=== PATIENT | female | born 2000 | race Caucasian/White ===

== ENCOUNTER 2023-12-28 14:20 | Inpatient (IN) | payer SELFPAY ==
[~2023-12-28] VITALS: Ht 162.6 cm; Wt 72.6 kg
[2023-12-28] MEDS: MIDAZOLAM HCL 2 MG/2 ML VIAL IM ONE ×2 (14:34→15:19)
[2023-12-28 15:00] LABS: CHLORIDE 107 mEq/L (98-107); POTASSIUM 3.5 mEq/L (3.5-5.1); SODIUM 140 mEq/L (136-145)
[2023-12-28 15:01] LABS: CALCIUM 10.3 mg/dL (8.7-10.4); CARBON DIOXIDE 22 mEq/L (21-32)
[2023-12-28 15:02] LABS: BASOPHILS % 0.3 % (0.0-2.0); EOSINOPHILS % 0.2 % (0.0-5.0); HEMATOCRIT. 44.2 % (36.0-48.0); HEMOGLOBIN. 14.4 g/dL (12.0-16.0); LYMPHOCYTES % 16.1 % (20.0-50.0); MEAN CORPUSCULAR HEMOGLOBIN 28.7 pg (28.0-32.0); MEAN CORPUSCULAR HGB CONC 32.6 g/dL (31.0-37.0); MEAN CORPUSCULAR VOLUME 87.9 fL (81.0-99.0); MEAN PLATELET VOLUME 10.4 fl (7.4-10.4); MONOCYTES % 4.3 % (2.0-8.0); NEUTROPHILS % 79.1 % (40.0-76.0); PLATELET 300 x1000/uL (130-400); RED BLOOD CELL COUNT 5.03 mill/uL (4.2-5.4); RED CELL DISTRIBUTION WIDTH 14.3 % (11.6-14.6)
[2023-12-28 15:05] LABS: UREA NITROGEN BLOOD 11 mg/dL (9-23)
[2023-12-28 15:06] LABS: CREATININE 0.7 mg/dL (0.6-1.0); GLUCOSE 109 mg/dL (70-105)
[2023-12-28 15:07] LABS: ALANINE AMINOTRANSFERASE 74 IU/L (10-49); ETHANOL BLOOD 80 mg/dL (<10)
[2023-12-28 15:08] LABS: ACETAMINOPHEN < 2 ug/mL (10-30); ALBUMIN 4.9 g/dL (3.2-4.8); ASPARTATE AMINOTRANSFERASE 74 IU/L (<34); BILIRUBIN TOTAL 0.3 mg/dL (0.1-1.0); PROTEIN TOTAL 8.2 g/dL (6.0-8.3)
[2023-12-28 15:13] LABS: BILIRUBIN DIRECT < 0.1 mg/dL (<=3.0)
[2023-12-28 15:22] LABS: HCG SCREEN NEGATIVE
[2023-12-28] MEDS: MIDAZOLAM HCL 2 MG/2 ML VIAL IV ONE (16:21)
[2023-12-28] MEDS: MIDAZOLAM HCL 2 MG/2 ML VIAL IM NR (16:48)
[2023-12-28] MEDS ORDERED: LACTATED RINGERS 1,000 ML IV SCH (17:30)
[2023-12-28 17:40] LABS: CLARITY URINE CLEAR (CLEAR); COLOR URINE YELLOW (YELLOW); GLUCOSE URINE NEGATIVE (NEGATIVE); KETONES URINE TRACE (NEGATIVE); LEUKOCYTE ESTERASE URINE TRACE (NEGATIVE); NITRITE URINE NEGATIVE (NEGATIVE); OCCULT BLOOD URINE NEGATIVE (NEGATIVE); PH URINE 5.5 (4.5-8.0); PROTEIN URINE NEGATIVE (NEGATIVE); SPECIFIC GRAVITY URINE 1.012 (1.005-1.030); UROBILINOGEN URINE 0.2 E.U./dL (0.2-1.0)
[2023-12-28] MEDS: KCL 20MEQ/100ML PREMIX 100 ML IV SCH (17:45)
[2023-12-28 17:48] LABS: *AMPHETAMINES SCREEN URINE NEGATIVE (NEGATIVE); *BARBITURATES SCREEN URINE NEGATIVE (NEGATIVE); *BENZODIAZEPINES SCREEN URINE PRESUMPTIVE POSITIVE (NEGATIVE)
[2023-12-28 17:49] LABS: *COCAINE SCREEN URINE NEGATIVE (NEGATIVE); CANNABINOID URINE SCREEN NEGATIVE (NEGATIVE); ECSTASY MDMA SCREEN URINE NEGATIVE (NEGATIVE); METHADONE URINE SCREEN NEGATIVE (NEGATIVE); OPIATES URINE SCREEN NEGATIVE (NEGATIVE); PHENCYCLIDINE URINE SCREEN NEGATIVE (NEGATIVE)
[2023-12-28 17:52] LABS: BACTERIA URINE 1+; RBC URINE 0-2 /hpf (0-2); SQUAMOUS EPITHELIAL CELL URINE 1+ /lpf (RARE/1+); WBC URINE 0-2 /hpf (0-2)
[2023-12-28] MEDS ORDERED: CLONIDINE 0.1MG TABLET PO PRN (18:00)
[2023-12-28] MEDS ORDERED: DOCUSATE SODIUM 100MG CAPSULE PO PRN (18:00)
[2023-12-28] MEDS ORDERED: LORAZEPAM 2MG/ML INJ IV PRN (18:00)
[2023-12-28] MEDS ORDERED: MAGNESIUM/ALUMINUM HYDROXIDE/SIMETHICONE 30ML UDC PO PRN (18:00)
[2023-12-28] MEDS ORDERED: ACETAMINOPHEN 325MG TABLET PO PRN ×2 (18:00)
[2023-12-28] MEDS ORDERED: ONDANSETRON HCL 4MG/2ML INJ IV PRN (18:00)
[2023-12-28] MEDS ORDERED: IPRATROPIUM/ALBUTEROL 0.5-3(2.5)MG/3ML NEB HHN PRN (18:00)
[2023-12-28] MEDS ORDERED: GUAIFENESIN 200MG/10ML SUGAR FREE UDC PO PRN (18:00)
[2023-12-28] MEDS: DEXT 5%/LACTATED RINGERS 1,000 ML IV SCH (18:43)
[2023-12-28 18:47] LABS: LACTIC ACID 3.4 mmol/L (0.4-2.0)
[2023-12-28 18:48] LABS: ALANINE AMINOTRANSFERASE 65 IU/L (10-49); ALBUMIN 4.3 g/dL (3.2-4.8); ASPARTATE AMINOTRANSFERASE 71 IU/L (<34); BETA HYDROXYBUTYRATE 0.2 mMol/L (0.0-0.3); BILIRUBIN TOTAL 0.3 mg/dL (0.1-1.0); PROTEIN TOTAL 7.3 g/dL (6.0-8.3)
[2023-12-28 18:53] LABS: BILIRUBIN DIRECT < 0.1 mg/dL (<=3.0)
[2023-12-28] MEDS: MVI, ADULT NO.1 10 ML, FOLIC ACID 1 MG, THIAMINE HCL 100 MG in SODIUM CHLORIDE 0.9% 1,0... IV SCH (20:29)
[2023-12-28] MEDS: MAGNESIUM 2 G PREMIX 50 ML IV NR (22:22)
[2023-12-28] MEDS: PANTOPRAZOLE SODIUM 40 MG/VIAL IV SCH (23:00)
[2023-12-29 01:37] LABS: CREATINE KINASE MB FRACTION 8.7 ng/mL (0.5-3.6)
[2023-12-29 01:38] LABS: ALANINE AMINOTRANSFERASE 67 IU/L (10-49); ALBUMIN 4.2 g/dL (3.2-4.8); ASPARTATE AMINOTRANSFERASE 78 IU/L (<34); BILIRUBIN DIRECT 0.1 mg/dL (<=3.0); BILIRUBIN TOTAL 0.5 mg/dL (0.1-1.0)
[2023-12-29 01:39] LABS: PROTEIN TOTAL 7.2 g/dL (6.0-8.3)
[2023-12-29 01:49] LABS: CREATINE KINASE 3393 IU/L (34-145)
[2023-12-29 01:53] LABS: TROPONIN I HIGH SENSITIVITY < 4 ng/L (3.0-34)
[2023-12-29 06:17] LABS: CHLORIDE 111 mEq/L (98-107); EOSINOPHILS % 0.5 % (0.0-5.0); HEMATOCRIT. 38.8 % (36.0-48.0); HEMOGLOBIN. 12.9 g/dL (12.0-16.0); LYMPHOCYTES % 15.3 % (20.0-50.0); MEAN CORPUSCULAR HGB CONC 33.2 g/dL (31.0-37.0); MEAN CORPUSCULAR VOLUME 87.4 fL (81.0-99.0); MEAN PLATELET VOLUME 10.2 fl (7.4-10.4); MONOCYTES % 7.7 % (2.0-8.0); NEUTROPHILS % 76.5 % (40.0-76.0); PLATELET 271 x1000/uL (130-400); POTASSIUM 3.6 mEq/L (3.5-5.1); RED BLOOD CELL COUNT 4.44 mill/uL (4.2-5.4); SODIUM 143 mEq/L (136-145); WHITE BLOOD COUNT 9.9 x1000/uL (4.5-11.0)
[2023-12-29 06:18] LABS: CALCIUM 8.7 mg/dL (8.7-10.4); CARBON DIOXIDE 27 mEq/L (21-32)
[2023-12-29 06:23] LABS: CREATININE 0.6 mg/dL (0.6-1.0); GLUCOSE 110 mg/dL (70-105); UREA NITROGEN BLOOD 7 mg/dL (9-23)
[2023-12-29 06:25] LABS: ALANINE AMINOTRANSFERASE 57 IU/L (10-49); ALBUMIN 3.9 g/dL (3.2-4.8); ASPARTATE AMINOTRANSFERASE 60 IU/L (<34); BILIRUBIN DIRECT 0.1 mg/dL (<=3.0); BILIRUBIN TOTAL 0.4 mg/dL (0.1-1.0); PROTEIN TOTAL 5.9 g/dL (6.0-8.3)
[2023-12-29 06:27] LABS: T4 FREE 1.14 ng/dL (0.89-1.76); THYROID STIMULATING HORMONE 4.66 uIU/mL (0.55-4.78)
[2023-12-29 06:30] LABS: TROPONIN I HIGH SENSITIVITY < 4 ng/L (3.0-34)
[2023-12-29 06:36] LABS: CREATINE KINASE 2157 IU/L (34-145)
[2023-12-29] MEDS: KCL 10MEQ/50ML PREMIX 50 ML IV ONE (06:36)
[2023-12-29] MEDS: KCL 20MEQ/100ML PREMIX 100 ML IV NR (07:17)
[2023-12-29 09:26] LABS: BG BASE EXCESS 0.9 mmol/L (-2.0-3.0); BG CARBOXYHEMOGLOBIN 0.7 % (0.5-1.5); BG DEOXYHEMOGLOBIN 2.8 % (0.0-5.0); BG FRACTION INSPIRED OXYGEN 21; BG HCO3 ACT 25.2 mmol/L (21.0-28.0); BG METHEMOGLOBIN 0.3 % (0.5-1.5); BG OXYGEN SATURATION 97.2 % (94.0-98.0); BG OXYHEMOGLOBIN 96.2 % (94.0-98.0); BG PH 7.428 (7.350-7.450); BG PO2 88.5 mmHg (83.0-108.0); BG SAMPLE SITE RIGHT BRACHIAL; BG TOTAL HEMOGLOBIN 13.7 g/dL (12.0-16.0); BG VENT MODE ROOM AIR
[2023-12-29] MEDS: FOLIC ACID 1MG TABLET PO SCH (10:23)
[2023-12-29] MEDS: THIAMINE HCL 100MG TABLET PO SCH (10:24)
[2023-12-29] MEDS: MULTIVITAMINS,THER W-MINERALS TABLET PO SCH (10:24)
[2023-12-29] MEDS: LACTATED RINGERS 1,000 ML IV SCH (12:53)
[2023-12-29] MEDS: MAGNESIUM 2 G PREMIX 50 ML IV SCH (14:03)
[2023-12-29] MEDS: POTASSIUM CHLORIDE 20MEQ TABLET SR PO PRN (17:36)
[2023-12-29] MEDS: IBUPROFEN 600MG TABLET PO SCH (20:13)
[2023-12-29 21:35] LABS: POTASSIUM 3.9 mEq/L (3.5-5.1)
[2023-12-29] MEDS: PANTOPRAZOLE SODIUM 40 MG/VIAL IV NR (21:35)
[2023-12-30 10:30] VITALS: BP 122/70; PULSE 135; RESP 18; TEMP 36.8072
[2023-12-30 11:00] VITALS: BP 122/70; PULSE 135; RESP 18; O2SAT 97
[2023-12-30] MEDS ORDERED: OLAN20TA79 PO (13:23)
[2023-12-30] MEDS ORDERED: SERT20OR6 PO (13:23)
[2023-12-30] MEDS ORDERED: LORAZEPAM 0.5MG TABLET PO PRN (13:30)
[2023-12-30 16:00] VITALS: BP 107/53; PULSE 88; RESP 19; TEMP 37.28076; O2SAT 99
[2023-12-30 20:00] VITALS: BP 105/70; PULSE 94; RESP 19; TEMP 37.33632; O2SAT 98
[2023-12-30 22:09] LABS: HEMATOCRIT 38.6 % (36.0-48.0); HEMOGLOBIN 12.9 g/dL (12.0-16.0); MEAN CORPUSCULAR HEMOGLOBIN 29.4 pg (28.0-32.0); MEAN CORPUSCULAR HGB CONC 33.5 g/dL (31.0-37.0); MEAN CORPUSCULAR VOLUME 87.8 fL (81.0-99.0); PLATELET 269 x1000/uL (130-400); RED BLOOD CELL COUNT 4.39 mill/uL (4.2-5.4); RED CELL DISTRIBUTION WIDTH 14.1 % (11.6-14.6); WHITE BLOOD COUNT 9.1 x1000/uL (4.5-11.0)
[2023-12-30 22:15] LABS: CARBON DIOXIDE 28 mEq/L (21-32); CHLORIDE 109 mEq/L (98-107); POTASSIUM 3.7 mEq/L (3.5-5.1); SODIUM 142 mEq/L (136-145)
[2023-12-30 22:16] LABS: CALCIUM 9.2 mg/dL (8.7-10.4)
[2023-12-30 22:20] LABS: CREATININE 0.8 mg/dL (0.6-1.0)
[2023-12-30 22:21] LABS: GLUCOSE 82 mg/dL (70-105); UREA NITROGEN BLOOD 9 mg/dL (9-23)
[2023-12-30 22:23] LABS: ALANINE AMINOTRANSFERASE 41 IU/L (10-49); ALBUMIN 3.8 g/dL (3.2-4.8); ASPARTATE AMINOTRANSFERASE 33 IU/L (<34); BILIRUBIN DIRECT 0.1 mg/dL (<=3.0); BILIRUBIN TOTAL 0.4 mg/dL (0.1-1.0); CREATINE KINASE 556 IU/L (34-145); PHOSPHORUS 3.7 mg/dL (2.5-4.9); PROTEIN TOTAL 6.2 g/dL (6.0-8.3)
[2023-12-31] VITALS: BP 116/82; PULSE 85; RESP 18; TEMP 36.9474; O2SAT 98
[2023-12-31 04:00] VITALS: BP 119/79; PULSE 76; RESP 18; TEMP 36.83628; O2SAT 99
[2023-12-31 07:31] VITALS: BP 106/54; PULSE 83; RESP 18; TEMP 37.05852; O2SAT 97
[2023-12-31 07:41] LABS: HEMATOCRIT 40.5 % (36.0-48.0); HEMOGLOBIN 13.5 g/dL (12.0-16.0); MEAN CORPUSCULAR HEMOGLOBIN 29.6 pg (28.0-32.0); MEAN CORPUSCULAR HGB CONC 33.3 g/dL (31.0-37.0); PLATELET 282 x1000/uL (130-400); RED BLOOD CELL COUNT 4.55 mill/uL (4.2-5.4); RED CELL DISTRIBUTION WIDTH 14.2 % (11.6-14.6); WHITE BLOOD COUNT 9.5 x1000/uL (4.5-11.0)
[2023-12-31 07:52] LABS: CHLORIDE 109 mEq/L (98-107); SODIUM 139 mEq/L (136-145)
[2023-12-31 07:53] LABS: CALCIUM 9.5 mg/dL (8.7-10.4); CARBON DIOXIDE 26 mEq/L (21-32)
[2023-12-31 07:58] LABS: CREATININE 0.7 mg/dL (0.6-1.0); GLUCOSE 97 mg/dL (70-105); UREA NITROGEN BLOOD 10 mg/dL (9-23)
[2023-12-31 08:00] LABS: PHOSPHORUS 3.3 mg/dL (2.5-4.9)
[2023-12-31] MEDS: FAMOTIDINE 20MG/2ML VIAL IV SCH (08:42)
[2023-12-31 13:14] VITALS: BP 112/56; PULSE 92; RESP 18; TEMP 36.50292; O2SAT 97
[2023-12-31 16:21] VITALS: BP 112/75; PULSE 113; RESP 20; TEMP 36.83628; O2SAT 98
[2023-12-31] MEDS: MAGNESIUM 1 G PREMIX 100 ML IV NR (16:46)
[2023-12-31 20:00] VITALS: BP 99/59; PULSE 84; RESP 17; TEMP 36.89184; O2SAT 98
[2023-12-31] MEDS: LAMOTRIGINE 25MG TABLET PO SCH (21:26)
[2024-01-01] VITALS: BP 100/52; PULSE 66; RESP 18; TEMP 36.6696; O2SAT 100
[2024-01-01 04:00] VITALS: BP 99/56; PULSE 75; RESP 17; TEMP 36.78072; O2SAT 100
[2024-01-01 04:56] LABS: CHLORIDE 108 mEq/L (98-107); SODIUM 140 mEq/L (136-145)
[2024-01-01 04:57] LABS: CARBON DIOXIDE 28 mEq/L (21-32)
[2024-01-01 05:02] LABS: CREATININE 0.7 mg/dL (0.6-1.0); GLUCOSE 97 mg/dL (70-105); UREA NITROGEN BLOOD 8 mg/dL (9-23)
[2024-01-01 05:03] LABS: ALBUMIN 3.7 g/dL (3.2-4.8); PROTEIN TOTAL 6.3 g/dL (6.0-8.3)
[2024-01-01 05:04] LABS: ALANINE AMINOTRANSFERASE 31 IU/L (10-49); ASPARTATE AMINOTRANSFERASE 23 IU/L (<34); BILIRUBIN TOTAL 0.3 mg/dL (0.1-1.0); CREATINE KINASE 267 IU/L (34-145); PHOSPHORUS 4.3 mg/dL (2.5-4.9)
[2024-01-01 05:23] LABS: BILIRUBIN DIRECT < 0.1 mg/dL (<=3.0)
[2024-01-01 06:13] LABS: HEMATOCRIT 38.6 % (36.0-48.0); HEMOGLOBIN 12.6 g/dL (12.0-16.0); MEAN CORPUSCULAR HEMOGLOBIN 28.9 pg (28.0-32.0); MEAN CORPUSCULAR HGB CONC 32.5 g/dL (31.0-37.0); MEAN CORPUSCULAR VOLUME 88.6 fL (81.0-99.0); PLATELET 270 x1000/uL (130-400); RED BLOOD CELL COUNT 4.35 mill/uL (4.2-5.4); RED CELL DISTRIBUTION WIDTH 14.1 % (11.6-14.6); WHITE BLOOD COUNT 8.5 x1000/uL (4.5-11.0)
[2024-01-01 08:00] VITALS: BP 110/69; PULSE 82; RESP 17; TEMP 36.16956; O2SAT 96
[2024-01-01] MEDS ORDERED: THIA100T72 MT ×2 (08:14→11:50)
[2024-01-01] MEDS ORDERED: LAM25 PO ×2 (08:14→11:50)
[2024-01-01] MEDS ORDERED: MULT-1279 MT ×2 (08:14→11:50)
[2024-01-01] MEDS ORDERED: FOLI-43 PO ×2 (08:14→11:50)
[2024-01-01 12:00] VITALS: BP 112/67; PULSE 97; RESP 19; TEMP 36.50292; O2SAT 96
[2024-01-01 14:17] VITALS: BP 108/61; PULSE 80; TEMP 97.9; O2SAT 98
== END 2024-01-01 15:35 | disposition home or self-care (01) | DRG 812 ==
LOC: ER 16:18 → MICUSO 17:51 → EDBEDREQ 18:27 → EDBEDREQTM 18:27 → EDBEDREQSVC 12-29 17:52 → 7EST 12-30 12:24
PROVIDERS: ADMIT Hospitalist; ATTEND Hospitalist
DX: T43.591A Poisoning by other antipsychotics and neuroleptics, accidental (unintentional), initial encounter (principal); G92.8 Other toxic encephalopathy; M62.82 Rhabdomyolysis; T43.221A Poisoning by selective serotonin reuptake inhibitors, accidental (unintentional), initial encounter; T51.2X1A Toxic effect of 2-Propanol, accidental (unintentional), initial encounter; F10.129 Alcohol abuse with intoxication, unspecified; D72.829 Elevated white blood cell count, unspecified; Z91.51 Personal history of suicidal behavior; F41.9 Anxiety disorder, unspecified; R74.01 Elevation of levels of liver transaminase levels; Z79.899 Other long term (current) drug therapy; Y92.89 Other specified places as the place of occurrence of the external cause
CPT/HCPCS: 36415; 71045; 80048; 80076; 80305; 80307; 80320; 80329; 81003; 82010; 82550; 82553; 82977; 83605; 83735; 84100; 84132; 84145; 84439; 84443; 84484; 84703; 85025; 85027; 93005; 97161; 97166; 99291; C1893; J2250; J2470; J3411; J3475; J3480; J3490; J7030; G0480